=== PATIENT | male | born 1960 | race Caucasian/White ===

== ENCOUNTER 2016-09-30 16:07 | Emergency (ER) | payer OTHER ==
[~2016-09-30] VITALS: Ht 177.8 cm; Wt 88.5 kg
[2016-09-30 16:24] VITALS: BP 117/76
--- NOTE | 2016-09-30 17:41 | ED ANIMAL BITE/WOUND CHECK ---
History of Present Illness General Chief Complaint: Animal/Insect Bite Stated Complaint: DOG BITE TO L LOWER LEG Source: patient, old records Exam Limitations: no limitations Vital Signs & Intake/Output Vital Signs & Intake/Output Vital Signs Date Time Temp Pulse Resp B/P Pulse O2 O2 Flow FiO2 Ox Delivery Rate 09/30 1624 96.9 58 20 117/76 97 Room Air Room Air Allergies Coded Allergies: NO KNOWN ALLERGIES (03/25/15) Reconcile Medications Amoxicillin/Potassium Clav (Augmentin 875-125 Tablet) 875 MG-125 MG TABLET 1 TAB PO BID ppx Triage Note: PT TO ED S/P DOG BITE TO LEFT LOWER LEG, "THEY HAVE 3 DOGS, AND THE ONE THAT BIT ME IS NOT UTD WITH THE SHOTS". Triage Nurses Notes Reviewed? yes Onset: Abrupt Duration: hour(s): (7), better Timing: recent history Injury Environment: work Is Injury an Animal Bite? Yes Animal Type: dog Context of Animal Attack: approached animal Appearance of Animal: appeared well Animal Immunization Status: unknown Observation/Capture: Animal Control notified Severity of Attack: bitten Severity: mild Severity Numbers: 2 No Modifying Factors: none Associated Symptoms: denies HPI: 56-year-old male history of A. 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 He now presents complaining of mild aching nonradiating pain to the left anterior suero. He states he cleaned the wound prior to arrival. He is up-to-date on his tetanus. He states the dog was not up-to-date on its vaccinations however is been cord seen by the lens maker currently. No fever no chills no rashes to the skin. He denies any other bites or scratches no modifying factors or assocaited sx otherwise. (DOUGLAS NGUYEN,ALIYAH) Past History Travel History Traveled to [place] past 21 day No Medical History Any Pertinent Medical History? see below for history Neurological: NONE EENT: NONE Cardiovascular: AFIB, CARDIOVERSION X 2 Respiratory: bronchitis Gastrointestinal: GERD Hepatic: NONE Renal: NONE Musculoskeletal: NONE Psychiatric: NONE Endocrine: NONE Blood Disorders: NONE Cancer(s): NONE CLEAT FEEDER/Reproductive: NONE Surgical History Surgical History: non-contributory Psychosocial History What is your primary language Mongolian Tobacco Use: Quit >30 days ago ETOH Use: denies use Illicit Drug Use: denies illicit drug use Family History Hx Contributory? No (ALIYAH URIBE) Review of Systems Review of Systems Constitutional: Reports: see HPI. All Other Systems: Reviewed and Negative Comments Review of systems: See HPI, All other systems negative. Constitutional, no chills no fever, no malaise HEENT: No visual changes no sore throat no congestion Cardiovascular: No chest pain , no palpitation , Skin, no rashes, no change in skin Respiratory: No dyspnea no cough no sputum GI: No nausea no vomiting, no diarrhea : No dysuria Muscle skeletal: No joint pain, no back pain, no neck pain, Neurologic: No numbness no headache Psych: No stress Heme/endocrine: No bruising no bleeding Immunology: No lymphadenopathy (ALIYAH URIBE) Physical Exam Physical Exam General Appearance: well developed/nourished, no apparent distress, alert, awake Comments: Well-developed well-nourished patient in no apparent distress. HEENT: Atraumatic, extraocular motion intact Neck: Supple, FROM, Back: FROM Cardiovascular: Regular rate and rhythms no murmurs rubs or gallops, Respiratory: No respiratory distress. Patient speaking in full complete sentences. Breath sounds clear to auscultation bilaterally: NO W/R/R Extremities: full range of motion Neuro: Alert and oriented x3 Skin: Warm & dry; there are 2 superficial abrasions noted to the left lower anterior suero no active bleeding Nontender no surrounding induration or fluctuance Psych: Mood affect normal, normal memory normal judgment. (ALIYAH URIBE) Progress Differential Diagnosis: abscess, cellulitis, joint infection, tenosysnovitis Plan of Care: Patient was informed and educated on signs of infection prescription for Augmentin was called into his pharmacy advise keeping area clean and covered bacitracin daily. I advised return anytime sooner if he develops redness warm swelling streaking up the skin fevers or chills. Answered all his questions the dog is being monitored by the warden your return anytime sooner with any concerns (ALIYAH URIBE) Departure Departure Time of Disposition: 1750 Disposition: HOME OR SELF CARE Condition: Stable Clinical Impression Primary Impression: Dog bite Referrals: DIGNA HARRY,NENA Wetzel (PCP/Family) Additional Instructions: Contact the lens maker this week to follow up on the dog's status. Augmentin as directed for prophylaxis bacitracin and Neosporin daily. Return immediately if you develop redness warmth swelling to leg fever or chills or any other concerns. This prescription was sent to your pharmacy Departure Forms: Customer Survey General Discharge Information Prescriptions: Current Visit Scripts Amoxicillin/Potassium Clav (Augmentin 875-125 Tablet) 1 TAB PO BID #10 TAB (ALIYAH URIBE) PA/MIRROR DEPARTMENT SUPERVISOR Co-Sign Statement Statement: ED Attending supervision documentation- [] I saw and evaluated the patient. I have also reviewed all the pertinent lab results and diagnostic results. I agree with the findings and the plan of care as documented in the PA's/MIRROR DEPARTMENT SUPERVISOR's documentation. [X] I have reviewed the ED Record and agree with the PA's/MIRROR DEPARTMENT SUPERVISOR's documentation. [] Additions or exceptions (if any) to the PAs/MIRROR DEPARTMENT SUPERVISOR's note and plan are summarized below: [] (ALEXEY HARRY,SHARLA)
[2016-09-30] MEDS ORDERED: AUGMENTIN 875-1 EACH PO (17:53)
== END 2016-09-30 17:53 ==
LOC: ERH 16:07
DX: S81.852A Open bite, left lower leg, initial encounter (principal); W54.0XXA Bitten by dog, initial encounter; Y93.89 Activity, other specified; Y92.009 Unspecified place in unspecified non-institutional (private) residence as the place of occurrence of the external cause